=== PATIENT | male | born 1960 | race Caucasian/White ===

== ENCOUNTER → 2022-10-14 | Outpatient (CLI) | payer OTHER ==
--- NOTE | 2022-10-14 16:24 | Diagnostic Imaging Report ---
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 Serum blood glucose level at the time of injection was 181 mg/dL. Patient was administered 7.9 mCi F-18 FDG intravenously in the right hand and PET imaging was performed from the top of skull to mid thighs. Noncontrast CT was also performed for attenuation correction and anatomic correlation. CORRELATION is made with outside CT soft tissue neck study performed 09/28/2022. No prior PET studies are available for comparison. There is symmetric activity throughout the brain. There is abnormal activity in the region of the left oropharynx at the area of fullness on recent CT with an SUV max of 5.4. In addition, there is uptake within left-sided level 2 lymph nodes with an SUV max of 5.7. No mediastinal or hilar hypermetabolism is seen. No definite pulmonary parenchymal hypermetabolism is identified. Physiologic activity throughout the gastrointestinal and genitourinary tracts is seen. No suspicious areas of hypermetabolism in the abdomen or pelvis are identified. IMPRESSION: Abnormal uptake in the left aspect of the oropharynx near the base of the tongue corresponding with CT fullness suggestive of primary malignancy. There is also activity within left sided level 2 lymph nodes, suggestive of elvie metastatic disease. No other suspicious areas of uptake are identified. Dictated by: Dictated on workstation # [id number]
== END ==
LOC: RAD 09:15
PROVIDERS: ATTEND Internal Medicine Hematology & Oncology
DX: C01 Malignant neoplasm of base of tongue (principal)
CPT/HCPCS: 78815; 82947; A9552